=== PATIENT | male | born 1960 ===

== ENCOUNTER 2021-04-24 10:45 | Emergency (ER) | payer SELFPAY ==
[~2021-04-24] VITALS: Ht 182.9 cm; Wt 110.2 kg
== END 2021-04-24 13:30 | disposition home or self-care (01) ==
LOC: ER1 10:45
DX: Z23 Encounter for immunization (principal); U07.1 COVID-19; Z90.89 Acquired absence of other organs
CPT/HCPCS: 99283; M0243